=== PATIENT | female | born 1990 | race Caucasian/White ===

== ENCOUNTER 2016-07-26 06:55 | Emergency (ER) | payer BC, OTHER ==
[~2016-07-26] VITALS: Ht 162.6 cm; Wt 59.0 kg
[2016-07-26] MEDS ORDERED: ONDANSETRON 4 MG INJ IV STA (06:57)
[2016-07-26] MEDS ORDERED: SOD CHLORIDE 0.9% 1,000 ML IV STA (06:57)
[2016-07-26] MEDS ORDERED: LORAZEPAM 2 MG INJ IV ONE (07:00)
[2016-07-26 07:19] VITALS: Ht 162.6 cm; Wt 59.0 kg
--- NOTE | 2016-07-26 07:23 | ERD ---
ER Documentation Chief Complaint Date/Time DATE: 07/26/16 TIME: 07:21 Chief Complaint HPI 25-year-old woman experienced a tonic-clonic seizure here in the emergency department while visiting her mother. She was awake for most of the night and was woken up suddenly at 3 AM while sleeping (to bring her mother to the emergency department). She does have a history of seizure disorder and used to be controlled with Lamictal which was discontinued after a few years of being seizure-free. Her last tonic-clonic seizure was about 5 years ago. She did not buy or injure her tongue, did not lose bowel or bladder control, and denies recent fevers or chills. ROS All systems reviewed and are negative except as per history of present illness. Allergies Allergies: Coded Allergies: No Known Allergy (Unverified , 07/26/16) NKA PER RN TORI IN ER PMhx/Soc Seizure disorder Smoking Status: Never smoker FmHx Family History: No diabetes Physical Exam Vitals Vital Signs Date Time Temp Pulse Resp B/P Pulse Ox O2 Delivery O2 Flow Rate FiO2 07/26/16 08:45 121 16 118/89 100 Room Air 07/26/16 07:19 118 24 118/85 Room Air 07/26/16 07:19 118 24 118/85 100 Physical Exam GENERAL: Well-developed, well-nourished, initially postictal HEENT: Moist mucous membranes, pink conjunctiva, no cervical spine tenderness or step-off deformities, no goiter, no jaundice or icterus, extraocular movements intact without pain. No submandibular induration, and no pharyngeal erythema NEURO: Alert and oriented 1, drowsy, cranial nerves II through XII intact bilaterally, pupils equal round reactive to light, no focal deficits or facial asymmetry, CARDIAC: Tachycardic and regular, no murmurs rubs or gallops LUNGS: Clear bilaterally no wheezing crackles or stridor ABDOMEN: Soft nontender, no guarding, no rigidity, no rebound, no psoas sign no obturator sign. Normoactive bowel sounds SKIN: Warm and dry to touch, no abrasions, contusions, or hematomas, no lacerations, no ecchymosis, no target lesions, and without ulcers EXTREMITIES: No clubbing cyanosis or edema, calves are bilaterally symmetrical, no Homans sign, no popliteal cord sign. Distal pulses equal and bilateral PSYCH: Normal affect without agitation or irritability Result Diagram: 07/26/1617 07/26/1617 Results 24 hrs Laboratory Tests Test 07/26/16 07:17 White Blood Count 10.110^3/ul Red Blood Count 5.2510^6/ul Hemoglobin 13.8g/dl Hematocrit 47.1% Mean Corpuscular Volume 89.7fl Mean Corpuscular Hemoglobin 26.3pg Mean Corpuscular Hemoglobin Concent 29.3g/dl Red Cell Distribution Width 14.6% Platelet Count 08562^3/UL Mean Platelet Volume 11.7fl Neutrophils % 45.7% Lymphocytes % 42.3% Monocytes % 9.6% Eosinophils % 1.3% Basophils % 0.6% Nucleated Red Blood Cells % 0.0/100WBC Neutrophils # 4.610^3/ul Lymphocytes # 4.310^3/ul Monocytes # 1.010^3/ul Eosinophils # 0.110^3/ul Basophils # 0.110^3/ul Nucleated Red Blood Cells # 0.010^3/ul Sodium Level 148mmol/L Potassium Level 3.3mmol/L Chloride Level 104mmol/L Carbon Dioxide Level 15mmol/L Anion Gap 32 Blood Urea Nitrogen 10mg/dl Creatinine 0.73mg/dl Glucose Level 99mg/dl Calcium Level 9.7mg/dl Total Bilirubin 0.8mg/dl Direct Bilirubin 0.00mg/dl Indirect Bilirubin 0.8mg/dl Aspartate Amino Transf (AST/SGOT) 23IU/L Alanine Aminotransferase (ALT/SGPT) 17IU/L Alkaline Phosphatase 66IU/L Troponin I < 0.012ng/ml Total Protein 8.8g/dl Albumin 5.5g/dl Globulin 3.30g/dl Albumin/Globulin Ratio 1.66 Lipase 99U/L Current Medications Medications (Trade) Dose Ordered Sig/Mo Route PRN Reason Start Time Stop Time Status Last Admin Dose Admin Sodium Chloride (NS) 1,000 ml @ 1,000 mls/hr Q1H STAT IV 07/26/16 06:57 07/26/16 07:56 DC 07/26/16 07:07 Ondansetron HCl (Zofran Inj) 4 mg ONCE STAT IV 07/26/16 06:57 07/26/16 06:59 DC 07/26/16 07:07 Lorazepam (Ativan) 0.5 mg ONCE ONCE IV 07/26/16 07:00 07/26/16 07:01 DC 07/26/16 07:08 Potassium Chloride (Klor-Con 20) 40 meq ONCE STAT PO 07/26/16 08:11 07/26/16 08:42 DC 07/26/16 08:44 Procedures/MDM IV line was established patient was placed on environmental monitoring specialist rhythm strip revealed a sinus tachycardia at 110 bpm with upright P and T waves. Patient was afebrile. EKG performed, read by me revealed a sinus tachycardia at 112 bpm, normal axis, narrow QRS complex, no concerning ST elevations or depressions noted. I administered 1 L normal saline intravenously, lorazepam 0.5 mg IV, and Zofran 4 mg IV with good response. CBC was normal, electrolytes revealed mild hypokalemia 3.3, liver function tests are normal, troponin was negative. I administered oral potassium supplementation 60 mEq p.o. Patient will follow up with PMD I do not suspect she will require antiepileptic medications as an outpatient although I will defer this decision to her PMD and neurologist Differential diagnoses considered, included but not limited to acute coronary syndrome, pulmonary embolism, aortic dissection, abdominal aortic aneurysm, sepsis, stroke, meningitis, encephalitis, pneumonia, appendicitis, cholecystitis , bowel obstruction, pyelonephritis, nephrolithiasis, cystitis, as well as metabolic, hematologic, and electrolyte abnormalities. As well as abscess, cellulitis, fractures, and dislocations. Patient feels much better at this time, and vital signs are normal, symptoms have improved. I did give strict instructions to return to the ED if symptoms continue or worsen, patient will otherwise follow-up with primary care physician. Patient understood instructions and agreed to plan. Departure Diagnosis: Primary Impression: Seizure disorder Additional Impression: Hypokalemia Condition: Good CHRISTOS FRIED MD Jul 26, 2016 07:22
[2016-07-26 07:32] LABS: ADD SCAN DIFF NO
--- NOTE | 2016-07-26 07:46 | RADRPT ---
PROCEDURE: CT Brain without. CLINICAL INDICATION: Seizure TECHNIQUE: A CT of the brain was performed utilizing axial sections from the skull base through th e vertex without contrast. The scan was reviewed in soft tissue brain and high frequency resolution bone algorithm windows. Images were reviewed on a high-resolution PACS workstation. The exam CTDI = 45.01 mGy, and the DLP = 1440.45 mGy-cm. COMPARISON: None available FINDINGS: Images are degraded by motion artifact. The ventricles are normal in size and midline in position. There is no intracranial hemorrhage, midline shift, or mass effect. No abnormal extra-axial fluid collections are identified. The rahman-white differentiation is well preserved. The basal cisterns a re patent. The posterior fossa is unremarkable. The visualized portions of the orbits are unremarkable. The paranasal sinuses and mastoid air cells are clear. No calvarial fracture or abnormality are identified. The soft tissues are unremarkable . IMPRESSION: Limited evaluation secondary to motion artifact. No definite abnormality is appreciated. RPTAT: HH .Lubna Pinzon MD, Date Time Electronically viewed and signed by .Lubna Pinzon MD, on 07/26/2016 07:46 .G/
[2016-07-26 07:50] LABS: ALBUMIN 5.5 g/dl (3.3-4.9); CHLORIDE 104 mmol/L (97-110); SODIUM 148 mmol/L (135-144)
[2016-07-26 07:51] LABS: POTASSIUM 3.3 mmol/L (3.5-5.1)
[2016-07-26 07:53] LABS: ALANINE AMINOTRANSFERASE 17 IU/L (13-69); ALBUMIN/GLOBULIN RATIO 1.66; ALKALINE PHOSPHATASE 66 IU/L (42-121); ANION GAP 32 (8-16); ASPARTATE AMINO TRANSFERASE 23 IU/L (15-46); BILIRUBIN,INDIRECT 0.8 mg/dl (0-1.1); BILIRUBIN,TOTAL 0.8 mg/dl (0.2-1.3); BLOOD UREA NITROGEN 10 mg/dl (7-20); CARBON DIOXIDE 15 mmol/L (21-31); CREATININE 0.73 mg/dl (0.44-1.00); GLUCOSE 99 mg/dl (70-220); TOTAL PROTEIN 8.8 g/dl (6.1-8.1)
[2016-07-26 07:54] LABS: CALCIUM 9.7 mg/dl (8.4-10.2)
[2016-07-26 08:02] LABS: BASOPHIL # 0.1 10^3/ul (0.0-0.1); BASOPHILS % 0.6 % (0.0-2.0); EOSINOPHILS # 0.1 10^3/ul (0.0-0.5); EOSINOPHILS % 1.3 % (0.0-7.0); HEMATOCRIT 47.1 % (37.0-47.0); HEMOGLOBIN 13.8 g/dl (12.0-16.0); LYMPHOCYTES # 4.3 10^3/ul (0.8-2.9); LYMPHOCYTES % 42.3 % (15.0-51.0); MEAN CORPUSCULAR HEMOGLOBIN 26.3 pg (29.0-33.0); MEAN CORPUSCULAR HGB CONC 29.3 g/dl (32.0-37.0); MEAN CORPUSCULAR VOLUME 89.7 fl (82.0-101.0); MEAN PLATELET VOLUME 11.7 fl (7.4-10.4); MONOCYTES % 9.6 % (0.0-11.0); NEUTROPHIL # 4.6 10^3/ul (1.6-7.5); NEUTROPHILS % 45.7 % (39.0-77.0); PLATELET COUNT 348 10^3/UL (140-415); RED BLOOD COUNT 5.25 10^6/ul (4.20-5.40); RED CELL DISTRIBUTION WIDTH 14.6 % (11.5-14.5); WHITE BLOOD COUNT 10.1 10^3/ul (4.8-10.8)
[2016-07-26] MEDS ORDERED: POTASSIUM CHLORIDE (SR) 20 MEQ TAB PO STA (08:11)
[2016-07-26 08:15] LABS: TROPONIN-I < 0.012 ng/ml (0.00-0.12)
[2016-07-26 08:45] VITALS: BP 118/89; PULSE 121; RESP 16
== END 2016-07-26 08:57 | disposition home or self-care (01) ==
LOC: E/R 06:55
DX: G40.909 Epilepsy, unspecified, not intractable, without status epilepticus (principal); E87.6 Hypokalemia; R40.2142 Coma scale, eyes open, spontaneous, at arrival to emergency department; R40.2252 Coma scale, best verbal response, oriented, at arrival to emergency department; R40.2362 Coma scale, best motor response, obeys commands, at arrival to emergency department; R51 Headache
CPT/HCPCS: 36415; 70450; 80053; 83690; 84484; 85025; 93005; 96374; 96375; 99285; J2060; J2405; J7030